=== PATIENT | female | born 1985 | race Caucasian/White ===

== ENCOUNTER 2018-08-04 20:03 | Inpatient (IN) | payer MEDICAID ==
[~2018-08-04] VITALS: Ht 162.6 cm; Wt 93.1 kg
[2018-08-04 20:28] VITALS: BP 110/61; PULSE 79; RESP 18; Ht 162.6 cm; Wt 93.1 kg
[2018-08-04] MEDS ORDERED: LACTATED RINGER'S 1,000 ML IV ONE (21:30)
[2018-08-04] MEDS ORDERED: PREN-93 PO (22:22)
[2018-08-04] MEDS ORDERED: TERBUTALINE 1 MG/ML INJ SC PRN (23:00)
[2018-08-04] MEDS: LACTATED RINGER'S 1,000 ML IV SCH (23:05)
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
[2018-08-05] MEDS ORDERED: CARBOPROST 250 MCG INJ IM PRN ×2 (01:00→07:30)
[2018-08-05] MEDS ORDERED: OXYTOCIN 30 UNITS/LR 500 ML IV PRN ×2 (01:00→07:30)
[2018-08-05] MEDS ORDERED: OXYTOCIN 30 UNITS/LR 500 ML IV SCH (01:00)
[2018-08-05] MEDS ORDERED: MISOPROSTOL 200 MCG TAB PR PRN ×2 (01:00→07:30)
[2018-08-05] MEDS ORDERED: METHYLERGONOVINE 0.2 MG INJ IM PRN ×2 (01:00→07:30)
[2018-08-05] MEDS: LACTATED RINGER'S 1,000 ML IV SCH ×4 (02:56→19:00)
[2018-08-05] MEDS ORDERED: CEFAZOLIN 2 GM/50 ML (PMX) 50 ML IVPB SCH (07:30)
[2018-08-05] MEDS: DEXAMETHASONE 4 MG/ML 1 ML INJ IM SCH ×2 (10:53→22:39)
[2018-08-05] MEDS ORDERED: DEXAMETHASONE 10 MG/ML 1 ML INJ IM SCH (11:00)
[2018-08-06] MEDS: LACTATED RINGER'S 1,000 ML IV SCH ×3 (01:08→17:02)
[2018-08-06] MEDS: DEXAMETHASONE 4 MG/ML 1 ML INJ IM SCH ×2 (10:14→22:04)
--- NOTE | 2018-08-09 09:13 | HP ---
Date/Time of Note Date/Time of Note DATE: 08/09/18 TIME: 09:07 OB - History Hx of Present Free Text/Dictation 33-year-old with single intrauterine at 36 weeks and 2 days complaining of uterine contractions and vaginal bleeding. She states good movement. She denies nausea, vomiting, shortness of breath, chest pain, headache, visual changes or LOF. Chief Complaint: Uterine contraction vaginal bleeding Estimated Due Date: Aug 31, 2018 : 3 Para: 2 Spontaneous : 0 Therapeutic : 0 Care: Good Care Ultrasounds: Normal mid trimester US Obstetrical Complications: None Medical Complications: None Past Family/Social History * Past Medical, Surgical, Family and Obstetric Histories reviewed from chart. OB Admission Exam Physical Exam HEENT: WNL Heart: Rhythm Normal Lungs: Clear Abdomen: WNL Extremities: Normal Membranes: Intact Heart Rate: 130's Accelerations: Accelerations Present Decelerations: No Decelerations Varibility: Moderate Contractions on Admission: 6-10 Minutes Apart Intensity: Mild OB Assessment/Plan Other plan: 33-year-old with single intrauterine at 36 weeks and 2 days with third trimester vaginal bleeding - FHR: No sign of metabolic acidosis- Category I - Continuous EFM, toco - CBC, blood type and screen - Urinalysis - OB ultrasound - Dexamethasone 6 mg every 12 hours for 4 doses - Plan of care discussed in detail with patient. She expressed understanding, all of her questions answered. DARIN MORRIS Aug 09, 2018 09:13
--- NOTE | 2018-08-09 09:29 | PN ---
Date/Time of Note Date/Time of Note DATE: 08/09/18 TIME: 09:13 OB Subjective Subjective Subjective Patient seen and examined. She states good movement. She denies nausea, vomiting, shortness of breath, chest pain, abdominal pain, headache, visual changes, vaginal bleeding or LOF. OB Objective Objective Objective General: Patient appears well, alert and oriented, NAD, appropriate mood and affect ABD: gravid, soft, non-tender. Back: No CVA tenderness (B/L) LE: Mild edema. No clubbing, cyanosis, edema, thigh or calf tenderness bilaterally FHT: 130 bpm , moderate variability with acceleration, no deceleration-category I Contractions: None OB Assessment/Plan Other plan: 33-year-old with single intrauterine at 36 weeks and 3 days with third trimester vaginal bleeding - FHR: No sign of metabolic acidosis- Category I - Continuous EFM, toco - She received 2 dose of dexamethasone. She would like to discharge home. I strongly recommend staying hospital and really get another 2 doses of dexamethasone. She is planning to sign AMA and leave the hospital. Sign and symptom of labor, preeclampsia, kick count discussed in detail with patient. She expressed understanding. All of her questions answered. DARIN MORRIS Aug 09, 2018 09:29
--- NOTE | 2018-08-09 09:31 | DS ---
Date/Time of Note Date/Time of Note DATE: 08/09/18 TIME: 09:30 Obstetrical Discharge Record Final Diagnosis Final Diagnosis: not delivered Other Final Diagnosis Late entry note. Patient seen on 08/06/2018 33-year-old with single intrauterine at 36 weeks and 3 days with third trimester vaginal bleeding - FHR: No sign of metabolic acidosis- Category I - Continuous EFM, toco - She received 2 dose of dexamethasone. She would like to discharge home. I strongly recommend staying hospital and really get another 2 doses of dexamethasone. She is planning to sign AMA and leave the hospital. Sign and symptom of labor, preeclampsia, kick count discussed in detail with patient. She expressed understanding. All of her questions answered. Condition on Discharge Physical Assessment Voiding: Yes Bowel Movement: Yes Calf Tenderness: No Patient Condition: Stable DARIN MORRIS Aug 09, 2018 09:31
== END 2018-08-06 22:50 | disposition home or self-care (01) | DRG 832 ==
LOC: OBT 20:03 → L-D 20:05 → OBT 08-05 00:30 → L-D 08-05 01:06 → PP1 08-05 18:15
PROVIDERS: ADMIT Obstetrics & Gynecology; ATTEND Obstetrics & Gynecology
DX: O46.93 Antepartum hemorrhage, unspecified, third trimester (principal); O47.03 False labor before 37 completed weeks of gestation, third trimester; Z3A.36 36 weeks gestation of pregnancy
CPT/HCPCS: 36415; 76815; 76818; 85025; 85610; 85730; 86592; 86850; 86900; 86901; 87340; 96360; 96361; 96372; G0463; J1100; J3105; J7120

== ENCOUNTER 2018-08-07 08:02 | Inpatient (IN) | payer MEDICAID ==
[2018-08-07] VITALS (7 sets, daily range): BP systolic 93–110; BP diastolic 51–62; PULSE 59–82; RESP 18; Ht 162.6 cm; Wt 94.2 kg
[~2018-08-07] VITALS: Ht 162.6 cm; Wt 94.2 kg
[~2018-08-07 08:02] MED LIST: PREN-93 PO
[2018-08-07] MEDS ORDERED: LACTATED RINGER'S 1,000 ML IV SCH (09:02)
--- NOTE | 2018-08-07 09:27 | PREAC ---
Date/Time of Note Date/Time of Note DATE: 08/07/18 TIME: 09:24 Anesthesia Eval and Record Evaluation Time Pre-Procedure Interview DATE: 08/07/18 TIME: 09:24 Age 33 Sex female NPO: 8 hrs Preoperative diagnosis iup at 37 weeks, bleeding Planned procedure repeat c section Past Medical History Past Medical History: Includes GI: Obesity Heme: Anemia Surgery & Anesthesia Issues No known issue Meds Anticoagulation: No Beta Helen within 24 hr: No Reason Beta Helen not given: Pt. not on B-Helen Reported Medications Vit No.124/Iron/FA ( Vitamin Tablet) 1 Each Tablet, 1 EACH PO, TAB 08/04/18 Current Medications Lactated Ringer's 1,000 ml @ 125 mls/hr Q8H IV ; Start 08/07/18 at 09:02 Cefazolin Sodium/ Dextrose 50 ml @ 100 mls/hr ONCE IVPB ; Start 08/07/18 at 09:30 Oxytocin/Lactated Ringer's 500 ml @ 0 mls/hr ONCE PRN IV .VAGINAL BLEEDING; Start 08/07/18 at 09:30 Methylergonovine Maleate (Methergine) 0.2 mg ONCE PRN IM .VAGINAL BLEEDING; Start 08/07/18 at 09:30 Carboprost Tromethamine (Hemabate) 250 mcg ONCE PRN IM .VAGINAL BLEEDING; Start 08/07/18 at 09:30 Misoprostol (Cytotec) 1,000 mcg ONCE PRN OR .VAGINAL BLEEDING; Start 08/07/18 at 09:30 Meds reviewed: Yes Allergies Coded Allergies: No Known Allergy (Unverified , 08/04/18) Allergies Reviewed: Yes Labs/Studies Labs Reviewed: Reviewed by anesthesiologist Result Diagram: 08/07/1808 Laboratory Tests 08/07/18 09:08 test: Positive Pre-procedure Exam Last vitals Vital Signs Date Temp Pulse Resp B/P (MAP) Pulse Ox O2 O2 Flow FiO2 Time Delivery Rate 08/07/18 98.6 82 18 100/59 08:37 (73) Airway: Adequate mouth opening, Adequate thyromental dist Mallampati: Mallampati II Teeth: Normal Lung: Normal Heart: Normal ASA Physical Status ASA physical status: 2 Emergency: None Planned Anesthetic Neuraxial: Spinal Planned Pain Management Parenteral pain med Pre-operative Attestations Prior to commencing anesthesia and surgery, the patient was re-evaluated, there was verification of: *The patient's identity *The results of appropriate recent lab work and preoperative vital signs *The above evaluation not changing prior to induction *Anesthetic plan, risk benefits, alternative and complications discussed with patient/family; questions answered; patient/family understands, accepts and wishes to proceed. ASHA SARAVIA Aug 07, 2018 09:27
[2018-08-07] MEDS ORDERED: METHYLERGONOVINE 0.2 MG INJ IM PRN (09:30)
[2018-08-07] MEDS ORDERED: OXYTOCIN 30 UNITS/LR 500 ML IV PRN ×2 (09:30→11:30)
[2018-08-07] MEDS ORDERED: CEFAZOLIN 2 GM/50 ML (PMX) 50 ML IVPB SCH (09:30)
[2018-08-07] MEDS ORDERED: MISOPROSTOL 200 MCG TAB PR PRN ×2 (09:30→11:30)
[2018-08-07] MEDS ORDERED: CARBOPROST 250 MCG INJ IM PRN ×2 (09:30→11:30)
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
[2018-08-07] MEDS ORDERED: ONDANSETRON 4 MG INJ IV PRN ×2 (11:00→13:30)
[2018-08-07] MEDS ORDERED: NALOXONE (0.4 MG/ML) INJ IV PRN ×2 (11:00→13:30)
[2018-08-07] MEDS ORDERED: DIPHENHYDRAMINE 50 MG INJ IV PRN ×2 (11:00→13:30)
[2018-08-07] MEDS ORDERED: HYDROmorphONE 0.5 MG/0.5 ML SYG IV PRN ×4 (11:00→13:30)
[2018-08-07] MEDS ORDERED: ZOLPIDEM 5 MG TAB PO PRN ×2 (11:00→13:30)
[2018-08-07] MEDS ORDERED: KETOROLAC 30 MG INJ IV PRN ×2 (11:00→13:30)
[2018-08-07] MEDS ORDERED: OXYTOCIN 30 UNITS/LR 500 ML IV SCH (11:10)
--- NOTE | 2018-08-07 11:10 | OPR ---
Operative Report Planned Procedure Free Text/Dictation Procedure date Aug 07, 2018 Procedure(s) Repeat emergency section Via Pfannenstiel skin incision Performed by see signature line Line Up Machine Operator: JESSEE MOMIN MD Anesthesiologist: ASHA SARAVIA Pre-procedure diagnosis 1. IUP at 37 weeks 2. History of prior x2 3. Second episode of heavy vaginal bleeding concerning for placental abruption Status post full course of steroids 4. Uterine contractions [id number] Anesthesia Type: Fagza2u spinal Post-Procedure Post-procedure diagnosis 1. Percent of abruption Findings Live Baby [female], Apgars [8 and 9] and [], weight [6 pound 2 ounces], position [vertex, delivered by internal podalic version due to non-engaged vertex and on a stable position], Estimated Blood Loss: 500 - 600 mls Specimen(s) Cord blood Grafts/Implant(s) none Complication(s) none Pt Condition post procedure: stable Disposition: PACU Procedure Description 33-year-old female with at 37 weeks and history of prior x2 and second episode of heavy vaginal bleeding presented to triage with complaint of bleeding since last night. Status post full course of steroids. Last dose received 12 hours ago Patient was presented and noted to have uterine contractions. Due to prior history of x2, uterine contractions and heavy vaginal bleeding concerning for placental abruption and early labor decision was made to proceed to the emergency section Risk and benefit of section including risk of infection, bleeding, damage to surrounding structures including bowel and bladder and risk of blood transfusion including but not limited to blood borne infection including HIV, hepatitis B and C and transfusion reaction discussed the patient in detail. Informed consent was obtained Patient verbalized understanding. CBC and type and screen was sent. Patient asked to blood transfusion in case of emergency. Then patient taken to the operating room and was placed in the dorsal supine position after adequate spinal anesthesia with a leftward tilt. Patient received a dose of 2 g of Ancef for prophylaxis prior to surgery. She was then prepped and draped in a sterile fashion. Timeout procedure completed. Then after assurance of adequate anesthesia a Pfannenstiel skin incision in the area of prior incision was made using scalpel was carried down to the underlying layer of fascia using scalpel and Bovie. Then the fascial incision was transversely opened. Superior aspect of fascial incision was then grasped with Pengilly, was elevated and was dissected off of the underlying rectus muscle using Bovie. The procedure proceeded in a similar fashion with the lower aspect of the fascial incision in a similar fashion. The rectus muscle was dissected in the midline. Parietal peritoneum was identified and was entered bluntly. Intra-abdominal cavity entered without any complication. Lower uterine segment was identified. Cristofer retractor was placed. With careful attention to the bladder and lower uterine transverse incision was made. Intrauterine cavity entered. Clear amniotic fluid noted. Baby's vertex was identified however. The presentation was vertex with unstable lie. This was due to on engagement of the head to the pelvis. There was evidence of placenta abruption with the presence of some blood clots. Then the baby was delivered by internal podalic version by grasping the lower extremity and was brought up to the incision and with gentle traction toward the maternal vertical axis the anterior axillary area then the posterior fossa was identified and the shoulders and arms and the anterior and the posterior arm delivered and the head was delivered using Mauriceau maneuver. Immediately nose and mouth was suctioned using DeLee suction. After 30 second delayed cord clamp was obtained. Then the cord was cut after it was clamped. The baby was handed to the waiting NICU team. Then the cord blood was obtained. Placenta delivered complete by uterine massage. Uterus was removed over clots in the past. Gutters were cleared of all clots and debris's. Uterine incision repaired in 2 layers using 1-0 Monocryl. First layer used for hemostasis and the second layer used for imbrication. Excellent hemostasis of the incision was obtained. Surgicel was applied over the incision. Then the laps were removed from the gutters and then the parietoperitoneum was repaired using 2-0 Vicryl in a continuous fashion. Then hemostasis of the sub-fascia and rectus muscle obtained using Bovie. Then the rectus muscle was reapproximated in the midline using 2-0 Vicryl. Then the fascia was reapproximated using 10 mild Monocryl in a continuous fashion. Then the subcutis tissue was irrigated using warm normal saline. Hemostasis of subcu test tissue obtained. And the skin was reapproximated using an sorb. And the and Dermabond was applied over the incision. Fundus was firm at the end of the delivery. Hemostasis was complete. Patient tolerated the procedure well. Sponge lap and needle counts were correct x2. Patient was then transferred to recovery room in stable condition CHA RODGERS MD Aug 07, 2018 11:10
[2018-08-07] MEDS ORDERED: NACL 0.9% 3 ML SYG IV SCH (11:30)
[2018-08-07] MEDS ORDERED: LANOLIN HPA 1 PKT TOP PRN (11:30)
--- NOTE | 2018-08-07 11:56 | PAC ---
Date/Time of Note Date/Time of Note DATE: 08/07/18 TIME: 11:56 Post-Anesthesia Notes Post-Anesthesia Note Last documented vital signs Vital Signs Date Temp Pulse Resp B/P (MAP) Pulse Ox O2 O2 Flow FiO2 Time Delivery Rate 08/07/18 98.6 82 18 100/59 1156 (73) Activity: WNL Respiratory function: WNL Cardiovascular function: WNL Mental status: Baseline Pain reasonably controlled: Yes Hydration appropriate: Yes Nausea/Vomiting absent: Yes ASHA SARAVIA Aug 07, 2018 11:56
[2018-08-07] MEDS ORDERED: IBUPROFEN 600 MG TAB PO SCH (12:00)
[2018-08-07] MEDS: OXYTOCIN 30 UNITS/LR 500 ML IV SCH ×2 (12:24→15:30)
[2018-08-07] MEDS: KETOROLAC 30 MG INJ IV PRN (12:36)
[2018-08-07] MEDS: LACTATED RINGER'S 1,000 ML IV SCH (16:47)
[2018-08-08] MEDS: LACTATED RINGER'S 1,000 ML IV SCH ×2 (01:11→08:30)
[2018-08-08 03:30] VITALS: BP 88/40; PULSE 65; RESP 18
[2018-08-08 08:30] VITALS: BP 83/44; PULSE 75; RESP 14
[2018-08-08] MEDS: KETOROLAC 30 MG INJ IV PRN (08:32)
[2018-08-08] MEDS: IBUPROFEN 600 MG TAB PO SCH ×3 (12:37→23:54)
--- NOTE | 2018-08-08 12:46 | QN ---
Documentation Comment no flatus afebrile VSS abdomen soft wound dry calf neg for tenderness lochia min A stable post RC/S P repeat CBC ambulating JESSEE MOMIN MD Aug 08, 2018 12:45
[2018-08-08 15:15] VITALS: BP 93/53; PULSE 72; RESP 16
[2018-08-08 19:40] VITALS: BP 92/58; PULSE 74; RESP 19
[2018-08-09] MEDS: HYDROCODONE/APAP (5/325) TAB PO PRN ×2 (01:57→08:58)
[2018-08-09 03:40] VITALS: BP 101/59; PULSE 87; RESP 18
[2018-08-09] MEDS: IBUPROFEN 600 MG TAB PO SCH ×3 (05:45→17:58)
--- NOTE | 2018-08-09 08:37 | PN ---
Date/Time of Note Date/Time of Note DATE: 08/09/18 TIME: 08:35 OB Subjective Subjective Subjective POD#2 Patient is doing well. She denies nausea, vomiting, shortness of breath, chest pain, headache. She has been ambulating without difficulty, tolerating regular diet. Pain is well controlled on current medications OB Objective Objective Objective Vital Signs Date Temp Pulse Resp B/P (MAP) Pulse Ox O2 O2 Flow FiO2 Time Delivery Rate 08/09/18 98.0 87 18 101/59 Room Air 03:40 (73) 08/08/18 96 08:30 General: AAO X 3, comfortable, NAD, appropriate mood and affect. Heart: RRR +S1, +S2, no murmurs. Lungs: Clear to auscultation (B/L), no rales, ronchi or wheezing. ABD: +BS. Soft, non-tender. Uterus 2 cm below umbilicus Incision: Clear, dry, intact. No erythema, drainage or induration. Flank: No CVA tenderness (B/L) LE: Mild edema. No clubbing, cyanosis, thigh or calf tenderness (B/L). Homans 'sign is negative OB Assessment/Plan Other plan: 33-year-old s/p repeat delivery at 37 weeks POD#2 - AF, VSS - Baby is doing well, at bed side. She is bonding well - Contraception methods with R/B/A/FR discussed - Continue care - Discharge home tomorrow - Rx and instruction given - Follow up in one and 6 weeks DARIN MORRIS Aug 09, 2018 08:37
--- NOTE | 2018-08-09 08:38 | DS ---
Date/Time of Note Date/Time of Note DATE: 08/09/18 TIME: 08:37 Obstetrical Discharge Record Final Diagnosis Final Diagnosis: Term delivered Other Final Diagnosis Final diagnoses: -Single intrauterine at 37 weeks with previous delivery -Third trimester vaginal bleeding 33-year-old s/p repeat delivery at 37 weeks POD#2. Her course was unremarkable she is ambulating and tolerating regular diet. She is voiding without difficulty. Pain is controlled on current medication. - AF, VSS - Baby is doing well, at bed side. She is bonding well - Contraception methods with R/B/A/FR discussed - Continue care - Discharge home tomorrow - Rx and instruction given - Follow up in one and 6 weeks Section Section: Repeat Condition on Discharge Physical Assessment Voiding: Yes Bowel Movement: Yes Breast: Soft, non-tender Fundus: Firm Calf Tenderness: No Patient Condition: Stable DARIN MORRIS Aug 09, 2018 08:38
[2018-08-09 08:57] VITALS: BP 88/50; PULSE 72; RESP 18
[2018-08-09] MEDS: DOCUSATE SODIUM 100 MG CAP PO SCH ×2 (08:58→21:29)
[2018-08-09] MEDS: MAGNESIUM HYDROXIDE 30ML CUP PO SCH (08:58)
[2018-08-09 16:50] VITALS: BP 101/56; PULSE 94; RESP 18
[2018-08-09 19:30] VITALS: BP 104/58; PULSE 90; RESP 18
[2018-08-09] MEDS: SILVER SULFADIAZINE 1% 25 GM CR TOP SCH (22:41)
[2018-08-10] MEDS: IBUPROFEN 600 MG TAB PO SCH ×3 (00:12→12:01)
[2018-08-10] MEDS: HYDROCODONE/APAP (5/325) TAB PO PRN (03:31)
[2018-08-10 04:45] VITALS: BP 99/62; PULSE 80; RESP 18
[2018-08-10 08:00] VITALS: BP 97/55; PULSE 91; RESP 18
[2018-08-10] MEDS: MAGNESIUM HYDROXIDE 30ML CUP PO SCH (08:29)
[2018-08-10] MEDS: DOCUSATE SODIUM 100 MG CAP PO SCH (08:29)
[2018-08-10] MEDS: SILVER SULFADIAZINE 1% 25 GM CR TOP SCH (09:00)
--- NOTE | 2018-08-10 12:06 | QN ---
Documentation Comment There is small healed ulcerative lesion above her incision at left side possible due to tape. She discharged home stable condition with follow-up in 1 week in the clinic. DARIN MORRIS Aug 10, 2018 12:05
== END 2018-08-10 14:55 | disposition home or self-care (01) | DRG 788 ==
LOC: OBT 08:02 → L-D 08:03 → OBT 09:02 → L-D 09:08 → PP1 14:18
PROVIDERS: ADMIT Obstetrics & Gynecology; ATTEND Obstetrics & Gynecology
PROC: 10D00Z1 Extraction of Products of Conception, Low, Open Approach (ICD-10-PCS; principal; 2018-08-07 10:15)
DX: O45.93 Premature separation of placenta, unspecified, third trimester (principal); O32.0XX0 Maternal care for unstable lie, not applicable or unspecified; O34.219 Maternal care for unspecified type scar from previous cesarean delivery; O99.214 Obesity complicating childbirth; E66.9 Obesity, unspecified; L98.9 Disorder of the skin and subcutaneous tissue, unspecified; Z3A.37 37 weeks gestation of pregnancy; Z37.0 Single live birth
CPT/HCPCS: 85025; 85610; 85730; 86592; 88307; 99464; G0463; J0690; J1885; J2590; J7120